=== PATIENT | female | born 1975 | race Caucasian/White ===

== ENCOUNTER 2019-01-01 21:21 | Emergency (ER) | payer SELFPAY ==
[~2019-01-01] VITALS: Ht 154.9 cm; Wt 63.6 kg
[2019-01-01 21:35] VITALS: BP 133/94
== END 2019-01-01 22:30 | disposition left against medical advice (07) ==
LOC: EMS 21:23
DX: I10 Essential (primary) hypertension (principal); Z53.21 Procedure and treatment not carried out due to patient leaving prior to being seen by health care provider